=== PATIENT | female | born 1975 | race Caucasian/White ===

== ENCOUNTER → 2017-02-14 | Outpatient (CLI) | payer BC ==
[2017-02-14 09:21] LABS: HEMOGLOBIN 9.9 gm/dl (12.3-15.3); RED BLOOD COUNT 4.15 M/UL (4.00-5.10); WHITE BLOOD COUNT 5.5 K/UL (4.5-11.0)
[2017-02-14 09:41] LABS: BUN/CREATININE RATIO 20 (0-10)
== END ==
LOC: LAB 08:28
PROVIDERS: Internal Medicine Cardiovascular Disease
DX: Z13.220 Encounter for screening for lipoid disorders (principal); R00.2 Palpitations; D64.9 Anemia, unspecified
CPT/HCPCS: 36415; 80053; 80061; 82306; 82607; 82728; 83540; 83550; 84443; 85025

== ENCOUNTER → 2020-06-06 | Day surgery (SDC) | payer BC | END | disposition home or self-care (01) | LOC: OR 06:38 | PROVIDERS: Orthopaedic Surgery | PROC: 0SBC4ZZ Excision of Right Knee Joint, Percutaneous Endoscopic Approach (ICD-10-PCS; principal; 2020-06-06 07:30) | DX: S83.281A Other tear of lateral meniscus, current injury, right knee, initial encounter (principal); S83.511A Sprain of anterior cruciate ligament of right knee, initial encounter; X58.XXXA Exposure to other specified factors, initial encounter; K21.9 Gastro-esophageal reflux disease without esophagitis; M94.261 Chondromalacia, right knee; Z79.899 Other long term (current) drug therapy; Z20.822 Contact with and (suspected) exposure to COVID-19 | CPT/HCPCS: 84703; J0171; J0690; J1100; J1170; J2001; J2250; J2405; J2704; J2765; J3010; J7120 ==

== ENCOUNTER → 2021-09-23 | Outpatient (CLI) | payer BC | LOC: EXRD 11:00 → US 15:00 | DX: R10.2 Pelvic and perineal pain (principal); R19.00 Intra-abdominal and pelvic swelling, mass and lump, unspecified site | CPT/HCPCS: 76830; 76856 ==

== ENCOUNTER → 2021-09-28 | Outpatient (CLI) | payer BC | LOC: MRI 11:14 | DX: R10.2 Pelvic and perineal pain (principal); R19.00 Intra-abdominal and pelvic swelling, mass and lump, unspecified site; R93.5 Abnormal findings on diagnostic imaging of other abdominal regions, including retroperitoneum; D25.9 Leiomyoma of uterus, unspecified; N83.292 Other ovarian cyst, left side | CPT/HCPCS: 72197; A9577 ==